=== PATIENT | male | born 2000 | race Caucasian/White ===

== ENCOUNTER 2023-07-04 05:07 | Emergency (ER) | payer OTHER ==
[~2023-07-04] VITALS: Ht 175.3 cm; Wt 69.0 kg
[2023-07-04 05:43] LABS: BASO % 0.2 % (0.0-1.0); EOS # 0.4 10^3/uL (0.0-0.5); EOS % 2.8 % (0.0-3.0); HEMATOCRIT 42.7 % (42.0-52.0); HEMOGLOBIN 14.4 g/dl (13.5-17.5); LYMPH # 1.6 10^3/uL (1.5-5.0); LYMPH % 12.1 % (24.0-44.0); MEAN CORPUSCULAR HEMOGLOBIN 31.1 pg (27.0-33.0); MEAN CORPUSCULAR HGB CONC 33.7 g/dl (32.0-36.5); MEAN CORPUSCULAR VOLUME 92.2 fl (80.0-96.0); MONO # 0.8 10^3/uL (0.0-0.8); MONO % 5.7 % (2.0-8.0); NEUTROPHILS # 10.6 10^3/uL (1.5-8.5); NEUTROPHILS % 78.9 % (36.0-66.0); PLATELET COUNT, AUTOMATED 223 10^3/uL (150-450); RED BLOOD COUNT 4.63 10^6/uL (4.30-6.10); WHITE BLOOD COUNT 13.4 10^3/uL (4.0-10.0)
[2023-07-04 06:08] VITALS: TEMP 98.7
[2023-07-04 06:12] LABS: LIPASE 30 U/L (12-53)
[2023-07-04 06:13] LABS: ALKALINE PHOSPHATASE 62 U/L (46-116); ALT/SGPT 22 U/L (7.0-40); AST/SGOT 13 U/L (<34); BILIRUBIN,DIRECT 0.1 MG/DL (<0.4); BILIRUBIN,TOTAL 0.4 MG/DL (0.3-1.2); BLOOD UREA NITROGEN 17 MG/DL (9-23); CARBON DIOXIDE LEVEL 29 MMOL/L (20-31); CHLORIDE LEVEL 105 MMOL/L (98-107); CREATININE FOR GFR 0.83 MG/DL (0.70-1.30); GLOMERULAR FILTRATION RATE > 60.0 (>60); GLUCOSE, FASTING 96 MG/DL (60-100); POTASSIUM SERUM 4.6 MMOL/L (3.5-5.1); SODIUM LEVEL 139 MMOL/L (136-145); TOTAL PROTEIN 7.1 G/DL (5.7-8.2)
[2023-07-04] MEDS ORDERED: NS 1,000 ML IV ONE (09:50)
[2023-07-04] MEDS ORDERED: ISOVUE-370 76% 100ML VIAL As Ordered ONE (10:02)
[2023-07-04] MEDS ORDERED: PANTOPRAZOLE 40MG VIAL IV ONE (12:15)
[2023-07-04] MEDS ORDERED: SUCRALFATE SUSP 1GM/10ML UD PO ONE (12:15)
[2023-07-04] MEDS ORDERED: ONDANSETRON 4MG 2ML VIAL IV ONE (12:50)
[2023-07-04 14:30] VITALS: BP 99/64; O2SAT 97
[2023-07-04] MEDS ORDERED: SUCR1TA PO (15:21)
[2023-07-04] MEDS ORDERED: ONDA4TAB6 PO (15:21)
[2023-07-04] MEDS ORDERED: OMEP40CA4 PO (15:21)
== END 2023-07-04 15:35 | disposition home or self-care (01) ==
LOC: M ED 05:07
DX: R10.9 Unspecified abdominal pain (principal); R19.7 Diarrhea, unspecified; F17.200 Nicotine dependence, unspecified, uncomplicated; F10.10 Alcohol abuse, uncomplicated; Z79.83 Long term (current) use of bisphosphonates; Z79.810 Long term (current) use of selective estrogen receptor modulators (SERMs); Z79.899 Other long term (current) drug therapy
CPT/HCPCS: 74177; 80048; 80076; 83605; 83690; 85025; 87486; 87581; 87633; 87798; 96361; 96374; 96375; 99285; C9113; J2405; Q9967